=== PATIENT | male | born 1990 | race Caucasian/White ===

== ENCOUNTER 2016-06-17 10:45 | Emergency (ER) | payer OTHER ==
[2016-06-17 11:37] VITALS: BP 113/66
== END 2016-06-17 13:54 | disposition home or self-care (01) ==
LOC: ED 10:45
DX: S51.022A Laceration with foreign body of left elbow, initial encounter (principal); J45.909 Unspecified asthma, uncomplicated; V22.4XXA Motorcycle driver injured in collision with two- or three-wheeled motor vehicle in traffic accident, initial encounter; Y93.55 Activity, bike riding; Y99.8 Other external cause status; Y92.89 Other specified places as the place of occurrence of the external cause
CPT/HCPCS: 90715; J0690; J2001